=== PATIENT | male | born 1940 | race Caucasian/White ===

== ENCOUNTER 2022-01-07 19:37 | Emergency (ER) | payer OTHER ==
[2022-01-07 20:31] LABS: HEMOGLOBIN 14.4 gm/dl (14.0-17.5); RED BLOOD COUNT 4.98 M/UL (4.20-5.50); WHITE BLOOD COUNT 18.6 K/UL (4.5-11.0)
[2022-01-07 20:53] LABS: BUN/CREATININE RATIO 17 (0-10)
== END 2022-01-08 09:00 | disposition short-term general hospital (02) ==
LOC: ER1 19:37
PROVIDERS: Student in an Organized Health Care Education/Training Program
DX: N13.2 Hydronephrosis with renal and ureteral calculous obstruction (principal); I11.9 Hypertensive heart disease without heart failure; K21.9 Gastro-esophageal reflux disease without esophagitis; Z20.822 Contact with and (suspected) exposure to COVID-19
CPT/HCPCS: 0240U; 51701; 71045; 80053; 81001; 82550; 82553; 83605; 84484; 85025; 87040; 87077; 87086; 87186; 96374; 99285; J0696; Q9967

== ENCOUNTER → 2022-01-23 | Outpatient (CLI) | payer OTHER | LOC: ECHO 13:08 | DX: I48.0 Paroxysmal atrial fibrillation (principal); I10 Essential (primary) hypertension; I49.5 Sick sinus syndrome; I47.1 Supraventricular tachycardia; R55 Syncope and collapse; I08.3 Combined rheumatic disorders of mitral, aortic and tricuspid valves | CPT/HCPCS: ECHO; 93306 ==

== ENCOUNTER 2022-03-02 11:55 | Emergency (ER) | payer OTHER ==
[2022-03-02 13:12] LABS: HEMOGLOBIN 10.2 gm/dl (14.0-17.5); RED BLOOD COUNT 3.56 M/UL (4.20-5.50)
[2022-03-02 13:50] LABS: BUN/CREATININE RATIO 12 (0-10)
[2022-03-02] MEDS ORDERED: K-TAB ER10 MEQ PO (17:17)
== END 2022-03-02 17:31 | disposition home or self-care (01) ==
LOC: ER1 11:55
PROVIDERS: Family Medicine
DX: R29.6 Repeated falls (principal); Z95.0 Presence of cardiac pacemaker
CPT/HCPCS: 70450; 71045; 80053; 82550; 82553; 84484; 85025; 93005; 99285